=== PATIENT | male | born 1995 | race Caucasian/White ===

== ENCOUNTER → 2019-09-10 14:44 | Outpatient (BNVA) | payer OTHER, SELFPAY | PROVIDERS: PCP Nurse Practitioner Family; Visit Provider Nurse Practitioner Family | DX: M79.672 Pain in left foot (principal) | CPT/HCPCS: 73630 ==

== ENCOUNTER → 2019-10-13 13:02 | Outpatient (BNVA) | payer OTHER, SELFPAY | PROVIDERS: PCP Nurse Practitioner Family; Visit Provider Nurse Practitioner | DX: R05 Cough (principal); J06.9 Acute upper respiratory infection, unspecified | CPT/HCPCS: 87804 ==

== ENCOUNTER → 2020-02-07 15:33 | Outpatient (BNVA) | payer OTHER, SELFPAY | PROVIDERS: PCP Nurse Practitioner Family; Visit Provider Nurse Practitioner | DX: J06.9 Acute upper respiratory infection, unspecified (principal); Z20.828 Contact with and (suspected) exposure to other viral communicable diseases; R50.9 Fever, unspecified; Z11.59 Encounter for screening for other viral diseases; Z68.42 Body mass index [BMI] 45.0-49.9, adult | CPT/HCPCS: 87635 ==

== ENCOUNTER 2021-08-17 10:13 | Emergency (ER) | payer SELFPAY ==
[2021-08-17 10:18] VITALS: BP 148/99; PULSE 137; RESP 35; TEMP 37.1; O2SAT 97; BMI 33.9
--- NOTE | 2021-08-17 10:24 | XRR_ITS ---
PROCEDURE INFORMATION: Exam: XR Chest Exam date and time: 08/17/2021 10:24 AM Age: 26 years old Clinical indication: Other: Abdominal pain TECHNIQUE: Imaging protocol: XR of the chest. Views: 1 view. Total images: 1 COMPARISON: No relevant prior studies available. FINDINGS: Lungs: Unremarkable. No consolidation. Pleural spaces: Unremarkable. No pleural effusion. No pneumothorax. Heart/Mediastinum: Unremarkable. No cardiomegaly. Bones/joints: Unremarkable. XR/XR chest 1V portable [id number] IMPRESSION: No acute cardiopulmonary process.
--- NOTE | 2021-08-17 10:25 | ECG_ITS ---
[facility] Test Date: 2021-08-17 Pat Name: Oneal Gonzalez Department: Room: Gender: Male [employer]: : 1995 Requested By: Robby Palomo Order Number: [id number] Donya MD: Mirtha Martinez M.D. Measurements Intervals [place] Rate: 141 P: 36 [place]: 114 QRS: -25 QRSD: 104 T: 19 QT: 268 QTc: 412 Interpretive Statements SINUS TACHYCARDIA WITH SHORT [place] INTERVAL Artifact Poor anterior R wave progression Compared to ECG 03/16/2016 00:01:05 No significant changes Electronically Signed On 08-17-2021 12:58:32 DATABASE TECHNICIAN by Mirtha Martinez M.D. [email or web address] [email or web address], [place] [id number]
--- NOTE | 2021-08-17 10:26 | W.ED.ABDPA2 ---
Documented by User: TOBI Vazquez 08/17/21 15:32 HPI - Abdominal Pain General: Chief Complaint: Urogenital-Male Stated Complaint: ABD PAIN Time Seen by Provider: 08/17/21 10:20 History of Present Illness: HPI narrative: Patient arrives via ambulance with complaint abdominal pain. Patient complains about severe pain right flank area. Ambulance brought him in given Dilaudid and Zofran. States Tylenol did not really help him. Patient was not tachycardic in the ambulance but does present here with increased heart rate. Patient has some old bruising scattered by his body is not for sure why that is going on. Denies any problems urinating, blood in the urine are bowel problems. No significant medical history. Patient did have dry heaves this morning. MD elicited complaint: flank pain Onset (ago): hour(s) Pain Consistency: constant Location: R flank Severity: moderate Quality: aching and sharp Exacerbating factors: movement Associated Symptoms: Reports no associated symptoms, chills, nausea and vomiting; Denies fever(s) Review of Systems Const: Reports: chills; Denies: fever(s) or body aches Eyes: Denies: change in vision or blurry vision ENMT: Denies: throat pain or nasal congestion Card: Denies: chest pain or dyspnea on exertion Resp: Denies: dyspnea, productive cough or non-productive cough GI: Reports: nausea and vomiting : Reports: flank pain; Denies: difficulty urinating Musc: Denies: extremity pain Skin/Breast: Denies: rash Neuro: Reports: difficulty communicating thoughts; Denies: headache(s) Psych: Denies: anxiety or depression Emil/Lymph: Denies: easy bruising PFSH ED PFSH: Social History Smoking and tobacco status: never smoked Alcohol intake: current Alcohol intake frequency: holidays/special occasions only Physical Exam Const: COMMON NORMALS: no acute distress, average body habitus and patient oriented x3 HENMT: COMMON NORMALS: normocephalic HEAD & SCALP: normal to inspection and normocephalic FACE & SINUS: normal facial exam Eye: COMMON NORMALS: conjunctivae normal GENERAL EYE: appearance normal, both eyes and all related structures CONJUNCTIVA: Yes conjunctivae normal Neck/C-Spine: COMMON NORMALS: no JVD Chest: COMMONS NORMALS: normal inspection of the chest Resp: COMMON NORMALS: normal respiratory effort and clear to auscultation bilaterally AUSCULTATION: clear to auscultation bilaterally Cardio: COMMON NORMALS: no JVD and regular rhythm RATE: tachycardic RHYTHM: regular rhythm GI: COMMON NORMALS: Soft to palpation (Obese) AUSCULTATION: Yes normoactive bowel sounds PALPATION: Yes Soft to palpation (Obese) : BLADDER/KIDNEY EXAM: Yes CVA tenderness on the right Back/Pelvis: GENERAL BACK: Yes CVA tenderness Extremity: COMMON NORMALS: normal to inspection and full ROM Neuro: COMMON NORMALS: patient oriented x3 Skin: OTHER: Scattered old bruises upper left shoulder humerus and right arm. Course Vital Signs: Vital signs: Vital Signs Temperature 98.8 F 08/17/21 10:18 Pulse Rate 89 08/17/21 14:30 Respiratory Rate 22 H 08/17/21 14:30 Blood Pressure 160/106 08/17/21 11:28 Pulse Oximetry 96 08/17/21 14:30 MDM - Abdominal Pain MDM Narrative: Medical decision making narrative: Patient arrived here via ambulance with complaint about right flank pain. Patient was given Dilaudid and Zofran in the ambulance and he got tachycardic low diaphoretic. Patient settled down after while here was given morphine for his discomfort. Laboratory studies were negative for any concerning findings . CT the abdomen shows mild hydronephrosis with a stone that dropped in the bladder pride chest during his time here in the ambulance. Patient's vital signs returned within normal limits. Patient ambulated well to the bathroom answering questions appropriately. Patient has no history of stones. Patient encouraged follow-up primary care provider take medications if needed drink plenty of fluids. Lab Data: Labs: Lab Results 08/17/21 08/17/21 08/17/21 10:35 10:35 10:35 WBC 13.3 10^3/uL H 10 ^3/uL (4.0-10.0) RBC 5.37 10^6/uL H 10 ^6/uL (4.1-5.3) Hgb 15.5 g/dL g/dL (11.7-16.6) Hct 48.8 % % (42.0-52.0) MCV 90.9 fl fl (80-94) MCH 28.9 pg pg (28.0-34.0) MCHC 31.8 g/dL g/dL (30.0-36.0) RDW 13.2 % % (12.1-15.1) Plt Count 279 10^3/cmm 10^3 /cmm (130-400) MPV 10.4 fL fL (7.4-10.4) Neut % (Auto) 83.6 % % Lymph % (Auto) 11.4 % % Holmes % (Auto) 4.0 % % Eos % (Auto) 0.3 % % Baso % (Auto) 0.2 % % Neut # (Auto) 11.14 10^3/uL H 1 0^3/uL (1.8-7.7) Lymph # (Auto) 1.5 10^3/uL 10^3/ uL (0.8-4.8) Holmes # (Auto) 0.5 10^3/uL 10^3/ uL (0.2-0.9) Eos # (Auto) 0.0 10^3/uL 10^3/ uL (0.0-0.8) Baso # (Auto) 0.0 10^3/uL 10^3/ uL (0.0-0.1) Nucleated RBC % (a uto) 0 % % Nucleated RBCs # 0.0 /100WBC /100W BC D-Dimer <= 0.27 ug/mIFEU ug/mIFEU (0-0.59) Sodium 139 mmol/L mmol/L (136-145) Potassium 4.4 mmol/L mmol/L (3.5-5.1) Chloride 102 mmol/L mmol/L (98-107) Carbon Dioxide 22 mmol/L mmol/L (22-29) Anion Gap 19.4 H (5-19) BUN 11 mg/dL mg/dL (6-20) Creatinine 0.7 mg/dL mg/dL (0.7-1.2) GFR Calculation 136.3 mL/min H mL /min (90-130) Glucose 132 mg/dL H mg/dL (65-115) Calculated Osmolal ity 289 mOsm/kg mOsm/ kg (285-295) Calcium 8.8 mg/dL mg/dL (8.5-10.5) Total Bilirubin 0.4 mg/dL mg/dL (0.15-1.2) AST 27 U/L U/L (0-40) ALT 41 U/L U/L (0-41) Alkaline Phosphata se 54 IU/L IU/L (40-130) Total Protein 7.8 g/dL g/dL (6.6-8.7) Albumin 4.9 g/dL g/dL (3.5-5.2) Globulin 2.9 g/dL g/dL (1.3-4.6) Lipase 30 U/L U/L (13-60) Urine Color Urine Appearance Urine pH Ur Specific Gravit y Urine Protein Urine Glucose (UA) Urine Ketones Urine Blood Urine Nitrate Urine Bilirubin Urine Urobilinogen Ur Leukocyte Cass ase Urine RBC Urine WBC Ur Squamous Epith Cells Amorphous Sediment Urine Bacteria Urine Mucus Coronavirus 229E ( PCR) SARS-CoV-2 (PCR) 08/17/21 08/17/21 11:15 13:20 WBC RBC Hgb Hct MCV MCH MCHC RDW Plt Count MPV Neut % (Auto) Lymph % (Auto) Holmes % (Auto) Eos % (Auto) Baso % (Auto) Neut # (Auto) Lymph # (Auto) Holmes # (Auto) Eos # (Auto) Baso # (Auto) Nucleated RBC % (a uto) Nucleated RBCs # D-Dimer Sodium Potassium Chloride Carbon Dioxide Anion Gap BUN Creatinine GFR Calculation Glucose Calculated Osmolal ity Calcium Total Bilirubin AST ALT Alkaline Phosphata se Total Protein Albumin Globulin Lipase Urine Color Yellow (Yellow) Urine Appearance Cloudy (CLEAR) Urine pH 5 (5-7) Ur Specific Gravit y 1.025 (1.005-1.030) Urine Protein Neg (Negative) Urine Glucose (UA) Norm (Normal) Urine Ketones Negative (Negative) Urine Blood 2+ H (Negative) Urine Nitrate Negative (Negative) Urine Bilirubin Neg (Negative) Urine Urobilinogen Norm mg/dL mg/dL (Negative) Ur Leukocyte Cass ase Negative (Negative) Urine RBC Rare /hpf /hpf (0-2) Urine WBC 0-4 /hpf H /hpf (0-5) Ur Squamous Epith Cells Rare /hpf /hpf (0-5) Amorphous Sediment Not Reportable Urine Bacteria Trace /hpf /hpf (NONE) Urine Mucus Trace /hpf /hpf Coronavirus 229E ( PCR) Not detected (NOT DETECT) SARS-CoV-2 (PCR) Not detected (NOT DETECT) Discharge Plan Discharge Patient Disposition: Home Clinical Impression: Kidney stone Condition: Stable Prescriptions: New tramadol 50 mg tablet 50 mg PO TID PRN (Reason: pain) Qty: 7 RF: 0 No Action ibuprofen 200 mg capsule 800 mg PO Q6H PRNRF: 0 Discharge Orders: Discharge ED (Routine); Ordered 08/17/21 Ordered By: Robby Palomo Referrals: Patricia Nicolas NP [Primary Care Provider] - Discharge Diet: Usual diet Discharge Activity: Resume usual activity Patient Instructions: Kidney Stones (ED) Activity Restrictions/Additional Instructions: You did have a kidney stone. The kidney stone is traveled down into your bladder and you should be able to pass it without difficulty. Follow-up your primary care provider or return here if you have worsening symptoms. Make sure you drink plenty of fluid. Coding Level of Care Code ED Housekeeping Assistant for Chg Fwd Exam Comprehensive Documented by User: Gino Sotomayor MD 08/19/21 22:46 HPI - Abdominal Pain General: Chief Complaint: Urogenital-Male Stated Complaint: ABD PAIN Time Seen by Provider: 08/17/21 10:20 [facility] ED PFSH: Social History Smoking and tobacco status: never smoked Alcohol intake: current Alcohol intake frequency: holidays/special occasions only Course Vital Signs: Vital signs: Vital Signs Temperature 98.8 F 08/17/21 10:18 Pulse Rate 89 08/17/21 14:30 Respiratory Rate 22 H 08/17/21 14:30 Blood Pressure 160/106 08/17/21 11:28 Pulse Oximetry 96 08/17/21 14:30 MDM - Abdominal Pain Lab Data: Labs: Lab Results 08/17/21 08/17/21 08/17/21 10:35 10:35 10:35 WBC 13.3 10^3/uL H 10 ^3/uL (4.0-10.0) RBC 5.37 10^6/uL H 10 ^6/uL (4.1-5.3) Hgb 15.5 g/dL g/dL (11.7-16.6) Hct 48.8 % % (42.0-52.0) MCV 90.9 fl fl (80-94) MCH 28.9 pg pg (28.0-34.0) MCHC 31.8 g/dL g/dL (30.0-36.0) RDW 13.2 % % (12.1-15.1) Plt Count 279 10^3/cmm 10^3 /cmm (130-400) MPV 10.4 fL fL (7.4-10.4) Neut % (Auto) 83.6 % % Lymph % (Auto) 11.4 % % Holmes % (Auto) 4.0 % % Eos % (Auto) 0.3 % % Baso % (Auto) 0.2 % % Neut # (Auto) 11.14 10^3/uL H 1 0^3/uL (1.8-7.7) Lymph # (Auto) 1.5 10^3/uL 10^3/ uL (0.8-4.8) Holmes # (Auto) 0.5 10^3/uL 10^3/ uL (0.2-0.9) Eos # (Auto) 0.0 10^3/uL 10^3/ uL (0.0-0.8) Baso # (Auto) 0.0 10^3/uL 10^3/ uL (0.0-0.1) Nucleated RBC % (a uto) 0 % % Nucleated RBCs # 0.0 /100WBC /100W BC D-Dimer <= 0.27 ug/mIFEU ug/mIFEU (0-0.59) Sodium 139 mmol/L mmol/L (136-145) Potassium 4.4 mmol/L mmol/L (3.5-5.1) Chloride 102 mmol/L mmol/L (98-107) Carbon Dioxide 22 mmol/L mmol/L (22-29) Anion Gap 19.4 H (5-19) BUN 11 mg/dL mg/dL (6-20) Creatinine 0.7 mg/dL mg/dL (0.7-1.2) GFR Calculation 136.3 mL/min H mL /min (90-130) Glucose 132 mg/dL H mg/dL (65-115) Calculated Osmolal ity 289 mOsm/kg mOsm/ kg (285-295) Calcium 8.8 mg/dL mg/dL (8.5-10.5) Total Bilirubin 0.4 mg/dL mg/dL (0.15-1.2) AST 27 U/L U/L (0-40) ALT 41 U/L U/L (0-41) Alkaline Phosphata se 54 IU/L IU/L (40-130) Total Protein 7.8 g/dL g/dL (6.6-8.7) Albumin 4.9 g/dL g/dL (3.5-5.2) Globulin 2.9 g/dL g/dL (1.3-4.6) Lipase 30 U/L U/L (13-60) Urine Color Urine Appearance Urine pH Ur Specific Gravit y Urine Protein Urine Glucose (UA) Urine Ketones Urine Blood Urine Nitrate Urine Bilirubin Urine Urobilinogen Ur Leukocyte Cass ase Urine RBC Urine WBC Ur Squamous Epith Cells Amorphous Sediment Urine Bacteria Urine Mucus Coronavirus 229E ( PCR) SARS-CoV-2 (PCR) 08/17/21 08/17/21 11:15 13:20 WBC RBC Hgb Hct MCV MCH MCHC RDW Plt Count MPV Neut % (Auto) Lymph % (Auto) Holmes % (Auto) Eos % (Auto) Baso % (Auto) Neut # (Auto) Lymph # (Auto) Holmes # (Auto) Eos # (Auto) Baso # (Auto) Nucleated RBC % (a uto) Nucleated RBCs # D-Dimer Sodium Potassium Chloride Carbon Dioxide Anion Gap BUN Creatinine GFR Calculation Glucose Calculated Osmolal ity Calcium Total Bilirubin AST ALT Alkaline Phosphata se Total Protein Albumin Globulin Lipase Urine Color Yellow (Yellow) Urine Appearance Cloudy (CLEAR) Urine pH 5 (5-7) Ur Specific Gravit y 1.025 (1.005-1.030) Urine Protein Neg (Negative) Urine Glucose (UA) Norm (Normal) Urine Ketones Negative (Negative) Urine Blood 2+ H (Negative) Urine Nitrate Negative (Negative) Urine Bilirubin Neg (Negative) Urine Urobilinogen Norm mg/dL mg/dL (Negative) Ur Leukocyte Cass ase Negative (Negative) Urine RBC Rare /hpf /hpf (0-2) Urine WBC 0-4 /hpf H /hpf (0-5) Ur Squamous Epith Cells Rare /hpf /hpf (0-5) Amorphous Sediment Not Reportable Urine Bacteria Trace /hpf /hpf (NONE) Urine Mucus Trace /hpf /hpf Coronavirus 229E ( PCR) Not detected (NOT DETECT) SARS-CoV-2 (PCR) Not detected (NOT DETECT) Discharge Plan Discharge Patient Disposition: Home Clinical Impression: Kidney stone Condition: Stable Prescriptions: New tramadol 50 mg tablet 50 mg PO TID PRN (Reason: pain) Qty: 7 RF: 0 No Action ibuprofen 200 mg capsule 800 mg PO Q6H PRNRF: 0 Discharge Orders: Discharge ED (Routine); Ordered 08/17/21 Ordered By: Robby Palomo Referrals: Patricia Nicolas NP [Primary Care Provider] - Discharge Diet: Usual diet Discharge Activity: Resume usual activity Patient Instructions: Kidney Stones (ED) Activity Restrictions/Additional Instructions: You did have a kidney stone. The kidney stone is traveled down into your bladder and you should be able to pass it without difficulty. Follow-up your primary care provider or return here if you have worsening symptoms. Make sure you drink plenty of fluid. Coding Level of Care Code ED Housekeeping Assistant for Chg Fwd Exam Comprehensive
--- NOTE | 2021-08-17 10:30 | CT_ITS ---
WS: [id number] CT ABDOMEN AND PELVIS NONCONTRAST HISTORY: right flank pain TECHNIQUE: Imaging performed through the abdomen and pelvis. Coronal and sagittal reformats are submi tted. All CT scans at [facility] use at least one of these dose optimization techniques: auto mated exposure control; mA and/or kV adjustment per patient size (includes targeted exams where dose is matched to clinical indication); or iterative reconstruction. DLP: 2478.89 mGy.cm COMPARISON: None available. Lower thorax: Lung bases are clear. Visualized heart is normal. No hiatal hernia. Liver: Moderately enlarged liver with decreased attenuation throughout. Changes of at least moderate hepatic steatosis. No bile duct dilatation. Gallbladder: Normal gallbladder. Pancreas: Normal size and attenuation. Normal pancreatic duct. No pancreatitis or mass. Spleen: Normal. Adrenal glands: Normal. No mass. Right kidney: Normal size RIGHT kidney. There is very mild dilatation of the renal pelvis and RIGHT u reter. 2 mm area of very slight increased density within the RIGHT ureter at the level of L5. The ure ter distal to this possible calcification is dilated to the urinary bladder. No renal calcifications remain within the kidney. Left kidney: Normal size kidney with no mass or hydronephrosis. Aorta: Normal abdominal aorta, no aneurysm or atherosclerosis. No free fluid, intraperitoneal air or significant lymphadenopathy. GI tract: Normal appendix. No GI tract obstruction or diverticulosis. Abdominal wall: Negative. No hernia. Pelvis: Well-distended urinary bladder. There is a 2 mm area of increased density within the RIGHT la teral urinary bladder which I suspect is a recently passed stone that was causing the mild RIGHT uret eral obstruction. This calcification is best seen on image 167 of series 2. Osseous structures: Unremarkable. CT/CT kidney stone [id number] IMPRESSION: 1. Very mild RIGHT hydroureteronephrosis. There is a 2 mm calcification in the RIGHT urinary bladder. This is probably the recently passed calcification caus ing the obstruction. There is an additional very tiny 2 mm area of increased de nsity in the mid RIGHT ureter at the L5 level which could be an additional smal l ureteral stone. 2. Normal appendix. 3. No additional renal calcifications.
[2021-08-17 10:48] LABS: Basophils % 0.2 %; Eosinophils % 0.3 %; Hematocrit 48.8 % (42.0-52.0); Hemoglobin 15.5 g/dL (11.7-16.6); Lymphocytes # 1.5 10^3/uL (0.8-4.8); Lymphocytes % 11.4 %; Mean Corpuscular HGB Conc 31.8 g/dL (30.0-36.0); Mean Corpuscular Hemoglobin 28.9 pg (28.0-34.0); Mean Corpuscular Volume 90.9 fl (80-94); Mean Platelet Volume 10.4 fL (7.4-10.4); Monocytes # 0.5 10^3/uL (0.2-0.9); Neutrophils # 11.14 10^3/uL (1.8-7.7); Neutrophils % 83.6 %; Nucleated Red Blood Cells % 0 %; Platelet Count 279 10^3/cmm (130-400); Red Blood Count 5.37 10^6/uL (4.1-5.3); Red Cell Distribution Width 13.2 % (12.1-15.1); White Blood Count 13.3 10^3/uL (4.0-10.0)
[2021-08-17 11:04] LABS: D Dimer <= 0.27 ug/mIFEU (0-0.59)
[2021-08-17 11:09] LABS: Alanine Aminotransferase 41 U/L (0-41); Albumin Level 4.9 g/dL (3.5-5.2); Alkaline Phosphatase 54 IU/L (40-130); Aspartate Amino Transferase 27 U/L (0-40); Blood Urea Nitrogen 11 mg/dL (6-20); Calcium 8.8 mg/dL (8.5-10.5); Carbon Dioxide 22 mmol/L (22-29); Chloride 102 mmol/L (98-107); Globulin 2.9 g/dL (1.3-4.6); Glomerular Filtration Rate 136.3 mL/min (90-130); Glucose 132 mg/dL (65-115); Lipase 30 U/L (13-60); Osmolality Calculated 289 mOsm/kg (285-295); Sodium 139 mmol/L (136-145); Total Bilirubin 0.4 mg/dL (0.15-1.2); Total Protein 7.8 g/dL (6.6-8.7)
[2021-08-17 11:11] LABS: Anion Gap 19.4 (5-19); Potassium 4.4 mmol/L (3.5-5.1)
[2021-08-17 11:12] VITALS: RESP 15; O2SAT 96
[2021-08-17] MEDS: morphine 4 mg/mL SDV 1 mL IVP (11:12)
[2021-08-17] MEDS: sodium chloride 0.9% 1,000 ML 999 ML IV (11:15)
[2021-08-17 11:28] VITALS: BP 160/106; PULSE 105; RESP 24; O2SAT 94
[2021-08-17 13:14] LABS: Adenovirus Not Detected (NOT DETECT); Chlamydia Pneumoniae Not Detected (NOT DETECT); Coronavirus 229E,HKU1,NL63,OC4 Not Detected (NOT DETECT); Human Metapneumovirus Not Detected (NOT DETECT); Human Rhinovirus/Enterovirus Not Detected (NOT DETECT); Influenza A Not Detected (NOT DETECT); Influenza A H1 Not Detected (NOT DETECT); Influenza A H1-2009 Not Detected (NOT DETECT); Influenza A H3 Not Detected (NOT DETECT); Influenza B Not Detected (NOT DETECT); Mycoplasma Pneumoniae Not Detected (NOT DETECT); Parainfluenza Virus Type 1 Not Detected (NOT DETECT); Parainfluenza Virus Type 2 Not Detected (NOT DETECT); Parainfluenza Virus Type 3 Not Detected (NOT DETECT); Parainfluenza Virus Type 4 Not Detected (NOT DETECT); Respiratory Syncytial Virus A Not Detected (NOT DETECT); Respiratory Syncytial Virus B Not Detected (NOT DETECT); SARS-COV-2 Not Detected (NOT DETECT)
[2021-08-17 14:01] LABS: Add Urine Microscopic? YES; Bacteria Urine TRACE /hpf; Bilirubin Urine Neg (Negative); Blood Urine 2+ (Negative); Glucose Urine UA Norm (Normal); Ketones Urine Negative (Negative); Leukocyte Esterase Urine Negative (Negative); Nitrate Urine Negative (Negative); Protein Urine Neg (Negative); RBC Urine RARE /hpf (0-2); Specific Gravity, Urine 1.025 (1.005-1.030); Squamous Epithelial Cell Urine RARE /hpf (0-5); Urine Appearance Cloudy (CLEAR); Urine Color Yellow (Yellow); Urobilinogen Urine Norm (Negative); WBC Urine 0-4 /hpf (0-5); pH Urine 5 (5-7)
[2021-08-17 14:02] LABS: Mucus Urine TRACE /hpf
[2021-08-17 14:30] VITALS: PULSE 89; RESP 22; O2SAT 96
== END 2021-08-17 14:40 | disposition home or self-care (01) ==
PROVIDERS: Emergency Provider Nurse Practitioner Family; PCP Nurse Practitioner Family
DX: N20.0 Calculus of kidney (principal); Z20.822 Contact with and (suspected) exposure to COVID-19
CPT/HCPCS: 71045; 74176; 80053; 81001; 83690; 85025; 85378; 87635; 93005; 96361; 96374; 99283; J2270; J7030

== ENCOUNTER 2023-09-23 16:35 | Emergency (ER) | payer MEDICAID, SELFPAY ==
[2023-09-23] VITALS (7 sets, daily range): BP systolic 145–159; BP diastolic 72–86; PULSE 103–117; RESP 18–25; TEMP 36.9; O2SAT 93–99; BMI 47.0
--- NOTE | 2023-09-23 17:14 | XRR_ITS ---
PROCEDURE INFORMATION: Exam: XR Chest Exam date and time: 09/23/2023 5:28 PM Age: 28 years old Clinical indication: Shortness of breath; Patient HX: SOB; Wheezing; Dry cough x 1 week TECHNIQUE: Imaging protocol: Radiologic exam of the chest. Views: 1 view. COMPARISON: CR XR chest 1V portable [id number] 08/17/2021 10:41 AM FINDINGS: Lungs: No consolidation. Pleural spaces: No pleural effusion. No pneumothorax. Heart/Mediastinum: No cardiomegaly. Bones/joints: No acute findings. XR/XR chest 1V portable [id number] IMPRESSION: No acute findings.
--- NOTE | 2023-09-23 17:14 | ED_ITS ---
Documented by User: MILLIE Lara 09/23/23 22:05 HPI - SOB/Dyspnea 2 General: Chief Complaint: Shortness of Breath/Dyspnea Stated Complaint: sob Time Seen by Provider: 09/23/23 17:10 Source: patient Mode of arrival: ambulatory Limitations: no limitations History of Present Illness: HPI Narrative: Patient is a 28-year-old male presents to ED today with a complaint of dyspnea/cough/chest wall pain. Patient states he began having URI-like symptoms approximately 3 days ago. He states at home he has treated with albuterol inhaler, one DuoNeb nebulizer treatment, and some leftover antibiotics (Amoxicillin) and steroids (20mg BID) and they do not seem to be helping. He states today dyspnea got significantly worse thus prompting his emergency evaluation. He states he feels like he cannot take a deep breath. He states he has been coughing so much that he is now having chest wall/rib pain. Patient arrives to the ED tachycardic. During my initial examination heart rate is in the 120s (although states normal HR for him is 100-110s) with respirations in the upper 20s. He appears anxious and pacing at times. Patient denies underlying lung disease. Denies sick contacts. No fevers. MD elicited complaint: shortness of breath, cough and pain with inspiration Onset (ago): day(s) Timing: constant Severity: moderate Exacerbating factors: exertion Relieving factors: nothing Associated symptoms: Reports chest congestion, chest pain (chest wall pain with coughing), cough and orthopnea; Deny abdominal pain, dizziness, fever(s), hemoptysis, lightheadedness, palpitations, syncope or vomiting Related Data: Home oxygen amount: none Review of Systems 2 Const: Denies: fever(s), chills, body aches, fatigue or malaise ENMT: Reports: nasal discharge and nasal congestion Card: Reports: chest pain (chest wall pain with coughing), dyspnea on exertion and orthopnea; Denies: palpitations, irregular heart rhythm, edema, swelling of feet/ankles, lightheadedness, syncope, pre-syncope, leg pain with exertion or acrocyanosis Resp: Reports: dyspnea, productive cough, pain on inspiration and chest congestion; Denies: wheezing, stridor or hemoptysis GI: Denies: abdominal pain or vomiting Musc: Denies: back pain or extremity swelling Neuro: Denies: numbness in extremities, sensory changes or dizziness PFSH ED 2 PFSH: Social History Smoking and tobacco/nicotine status: never used tobacco/nicotine Alcohol intake: current Alcohol intake frequency: holidays/special occasions only Substance/Drug Use: never Adopted: No Lives independently: Yes Household members: family Housing: House Marital status: / Number of children: 2 service: No Current occupational status: employed Pets and animals: Yes Do you think of yourself as: Straight/Heterosexual Current gender identity: Male Physical Exam 2 Const: COMMON NORMALS: patient oriented x3, no limitations, alert and well nourished GENERAL APPEARANCE: cooperative, in distress (respiratory distress with tachycardia and tachypnea) and anxious NUTRITIONAL APPEARANCE: obese ORIENTATION/CONSCIOUSNESS: Yes awake, Yes oriented to person, Yes oriented to place and Yes oriented to time HENMT: FACE & SINUS: normal facial exam Neck/C-Spine: GENERAL: Yes normal visual inspection Chest: COMMONS NORMALS: normal inspection of the chest and normal palpation of entire chest wall Resp: COMMON NORMALS: clear to auscultation bilaterally EFFORT & INSPECTION: Yes tachypneic and Yes Actively coughing AUSCULTATION: clear to auscultation bilaterally Cardio: COMMON NORMALS: regular rhythm RATE: tachycardic RHYTHM: regular rhythm Extremity: COMMON NORMALS: no clubbing, cyanosis or edema and no pedal edema Neuro: CEDRIC COMA SCALE: document GCS findings Cedric coma scale eye opening: Spontaneous [place] coma scale verbal response: Orientated [place] coma scale motor response: Obey commands [place] coma scale total score: 15 COMMON NORMALS: patient oriented x3 SENSORIUM/ORIENTATION: Yes alert, Yes oriented to person, Yes oriented to place and Yes oriented to time Skin: COMMON NORMALS: no rashes or lesions noted GENERAL SKIN EXAM: no rashes or lesions noted Course 2 Vital Signs: Vital signs: Vital Signs Temperature 98.4 F 09/23/23 19:58 Pulse Rate 103 H 09/23/23 19:58 Respiratory Rate 25 H 09/23/23 19:58 Blood Pressure 159/86 09/23/23 19:58 Pulse Oximetry 94 09/23/23 19:58 Oxygen Delivery Me thod Room Air 09/23/23 18:14 MDM - SOB/Dyspnea Medical Decision Making Patient is a nice 28-year-old male here for concerns of dyspnea, cough, and chest wall pain secondary to coughing. Symptoms have been present over the past 3 to 4 days. Upon arrival he was tachycardic and tachypneic-these did improve. O2 sats were 99% on room air. He was anxious appearing. ED evaluation including CBC, CMP, D-dimer, BNP, ABG all are fairly unremarkable. Elevated glucose which he was made aware of. CXR showing no acute findings. His respiratory panel was positive for RSV type B. Patient was given IV Solu- Medrol, DuoNeb respiratory treatment, and anti-inflammatory/pain medications for his chest wall pain which seems to be his most bothersome symptom. We will place him on steroids at home. Will treat chest wall pain with pain medications and give him something for the cough. Return to ED precautions discussed. Following discharge patient called to the emergency department and I spoke to him directly. He questions whether he can compensate for the chest wall pain that he is experiencing. He is asking if I believe a hospital admission would be warranted or beneficial. I told him I would be more than willing to contact the hospitalist Dr. Nguyen and run his case by him and call patient back. I did speak to hospitalist who felt there was no need for a hospitalization for chest wall pain/strain vs pleurisy. He said he would be willing to admit the patient to obs but that patient would most likely be discharged in the morning and he did not feel benefits would outweigh financial cost and did not feel like stay would overall benefit patient as he would be unlikely significantly improved tomorrow. He did recommend stronger pain medications/opiates for treatment. I spoke with Dr. Orellana and we will have patient come back to the emergency department and he will be dispensed oxycodone to last him throughout the night and will be given a prescription for this that he can fill tomorrow. Patient was agreeable to this plan. Again return to ED precautions were discussed with patient. Medical Records I reviewed the patient's medical records. Lab Data I reviewed the patient's lab results. 09/23/23 17:25 09/23/23 17:25 Labs/Radiology: Radiology Impressions Chest X-Ray 09/23/23 17:14 IMPRESSION: No acute findings. Laboratory Results WBC 15.62 10^3/uL (3.29-11.43) H 09/23/23 17:25 RBC 4.65 10^6/uL (3.85-5.65) 09/23/23 17:25 Hgb 13.40 g/dL (11.27-16.99) 09/23/23 17:25 Hct 42.0 % (37-53) 09/23/23 17:25 MCV 90.3 fl (82-101) 09/23/23 17:25 MCH 28.8 pg (27-33) 09/23/23 17:25 MCHC 31.9 g/dL (30-55) 09/23/23 17:25 RDW 14.0 % (12.1-15.1) 09/23/23 17: Plt Count 253 10^3/cmm (157-399) 09/23/23 17:25 MPV 10.6 fL (7.4-10.4) H 09/23/23 17:25 Neut % (Auto) 79.3 % 09/23/23 17:25 Lymph % (Auto) 10.3 % 09/23/23 17:25 Elmore % (Auto) 9.3 % 09/23/23 17:25 Eos % (Auto) 0.4 % 09/23/23 17:25 Baso % (Auto) 0.3 % 09/23/23 17: Neut # (Auto) 12.37 10^3/uL (1.8-7.7) H 09/23/23 17:25 Lymph # (Auto) 1.6 10^3/uL (0.8-4.8) 09/23/23 17:25 Elmore # (Auto) 1.5 10^3/uL (0.2-0.9) H 09/23/23 17:25 Eos # (Auto) 0.1 10^3/uL (0.0-0.8) 09/23/23 17:25 Baso # (Auto) 0.0 10^3/uL (0.0-0.1) 09/23/23 17:25 Nucleated RBC % (auto) 0 % 09/23/23: Nucleated RBCs # 0.0 /100WBC 09/23/23 17:25 D-Dimer 0.28 ug/mLFEU (0-0.59) 09/23/23 17:25 Specimen Type Arterial 09/23/23 17:55 Sample Site Radial, left 09/23/23 17:55 ABG pH 7.42 (7.35-7.45) 09/23/23 17:55 ABG pCO2 40.9 mmHg (35-45) 09/23/23 17:55 ABG pO2 69.2 mmHg (80.0-100.0) L 09/23/23 17:55 ABG PO2/FiO2 Ratio 0 09/23/23 17:55 ABG HCO3 26.6 mmol/L (22-26) H 09/23/23 17:55 ABG O2 Saturation 94.4 09/23/23 17:55 ABG Base Excess 2.0 mmol/L (-2.0-2.0) 09/23/23 17:55 Farrukh Test Pos 09/23/23 17:55 A-a O2 Gradient 3.9 mmHg (5-10) L 09/23/23 17:55 Hematocrit 43.7 % (42-52) 09/23/23 17:55 Hgb O2 Saturation 93.3 % (95-100) L 09/23/23 17:55 Carboxyhemoglobin 0.5 %THgb (0.4-20.1) 09/23/23 17:55 Methemoglobin 0.6 % (0.4-1.5) 09/23/23 17:55 Total Hemoglobin 14.3 g/dL (14-18) 09/23/23 17:55 Sodium 142.0 mmol/L (131-143) 09/23/23 17:55 Potassium 3.6 mmol/L (3.5-5.0) 09/23/23 17:55 Glucose 139.0 mg/dL (70-115) H 09/23/23 17:55 Ionized Calcium 1.3 mmol/L (1.1-1.4) 09/23/23 17:55 O2 Delivery Device Room air 09/23/23 17:55 FiO2 21.0 % 09/23/23 17:55 Notched Blade Loader ID Monro 09/23/23 17:55 Sodium 138 mmol/L (136-145) 09/23/23 17:25 Potassium 3.7 mmol/L (3.5-5.1) 09/23/23 17:25 Chloride 102 mmol/L (98-107) 09/23/23 17:25 Carbon Dioxide 26 mmol/L (22-29) 09/23/23 17:25 Anion Gap 13.7 (5-19) 09/23/23 17:25 BUN 13 mg/dL (6-20) 09/23/23 17:25 Creatinine 0.7 mg/dL (0.7-1.2) 09/23/23 17:25 GFR Calculation 134.3 mL/min (90-130) H 09/23/23 17:25 Glucose 174 mg/dL (65-115) H 09/23/23 17:25 Calculated Osmolality 290 mOsm/kg (285-295) 09/23/23 17:25 Calcium 9.4 mg/dL (8.5-10.5) 09/23/23 17:25 Total Bilirubin 0.2 mg/dL (0.15-1.2) 09/23/23 17:25 AST 31 U/L (0-40) 09/23/23 17:25 ALT 41 U/L (0-41) 09/23/23 17:25 Alkaline Phosphatase 67 U/L (40-130) 09/23/23 17:25 NT-Pro-B Natriuret Pep 43 pg/mL (0-125) 09/23/23 17:25 Total Protein 7.6 g/dL (6.6-8.7) 09/23/23 17:25 Albumin 4.2 g/dL (3.5-5.2) 09/23/23 17:25 Globulin 3.4 g/dL (1.3-4.6) 09/23/23 17:25 Adenovirus (PCR) Not detected (NOT DETECT) 09/23/23 17:19 C. pneumoniae DNA (PCR) Not detected (NOT DETECT) 09/23/23 17:19 Coronavirus 229E (PCR) Not detected (NOT DETECT) 09/23/23 17:19 Human Metapneumovir PCR Not detected (NOT DETECT) 09/23/23 17:19 Influenza A (H1) PCR Not detected (NOT DETECT) 09/23/23 17:19 Influ A (H1/09) PCR Not detected (NOT DETECT) 09/23/23 17:19 Influenza A (H3) PCR Not detected (NOT DETECT) 09/23/23 17:19 Influenza Type A (PCR) Not detected (NOT DETECT) 09/23/23 17:19 Influenza Type B (PCR) Not detected (NOT DETECT) 09/23/23 17:19 M. pneumoniae (PCR) Not detected (NOT DETECT) 09/23/23 17:19 Parainfluenza 1 (PCR) Not detected (NOT DETECT) 09/23/23 17:19 Parainfluenza 2 (PCR) Not detected (NOT DETECT) 09/23/23 17:19 Parainfluenza 3 (PCR) Not detected (NOT DETECT) 09/23/23 17:19 Parainfluenza 4 (PCR) Not detected (NOT DETECT) 09/23/23 17:19 RSV Type A (PCR) Not detected (NOT DETECT) 09/23/23 17:19 RSV Type B (PCR) Detected (NOT DETECT) A 09/23/23 17:19 Entero/Rhino (PCR) Not detected (NOT DETECT) 09/23/23 17:19 SARS-CoV-2 (PCR) Not detected (NOT DETECT) 09/23/23 17:19 All radiology interpretation(s) finalized by discharge Discharge Plan Discharge Patient Disposition: Home Clinical Impression: RSV (respiratory syncytial virus infection) Chest wall muscle strain Qualifiers: Encounter type: initial encounter Qualified Code(s): S29.011A - Strain of muscle and tendon of front wall of thorax, initial encounter Condition: Stable Prescriptions: New promethazine-DM 6.25-15 mg/5 mL syrup 5 ml PO Q6H PRN (Reason: cough) Qty: 100 0RF prednisone 10 mg tablet 10 mg PO DAILY 10 Days Qty: 27 0RF Rx Instructions: 6 tabs on days 1-2, 5 tabs on days 3, 4 tabs on day 4, 3 tabs on day 5, 2 tabs on day 6, 1 tab on day 7 Percocet 7.5-325 mg tablet 1 tab PO Q6H PRN (Reason: pain) Qty: 10 0RF No Action ibuprofen 200 mg capsule 800 mg PO Q6H PRN sertraline 50 mg tablet 50 mg PO DAILY Qty: 30 5RF buspirone 10 mg tablet 10 mg PO BID Qty: 60 2RF Discharge Orders: Discharge ED (Routine); Ordered 09/23/23 Ordered By: Josefa Tee Patient Instructions: Chest Pain - Chest Wall, Upper Respiratory Infection (DC) Activity Restrictions/Additional Instructions: As we discussed you tested positive for RSV on your respiratory panel today. I am placing you on steroids, giving you something for your cough as well as your chest wall pain. As we discussed your blood work here was fairly unremarkable. There chest x-ray was normal. Monitor symptoms closely. You need to return to the emergency department for worsening cough or shortness of breath, severe difficulty breathing, worsening chest pain, fevers, or any other concerns you may have. I hope you begin to feel better soon. Coding Level of Care Code ED Desktop Publishing Associate for Chg Fwd Documented by User: Eddie Orellana DO 09/24/23 02:23 HPI - SOB/Dyspnea 2 General: Chief Complaint: Shortness of Breath/Dyspnea Stated Complaint: sob Time Seen by Provider: 09/23/23 17:10 PFSH ED 2 PFSH: Social History Smoking and tobacco/nicotine status: never used tobacco/nicotine Alcohol intake: current Alcohol intake frequency: holidays/special occasions only Substance/Drug Use: never Adopted: No Lives independently: Yes Household members: family Housing: House Marital status: / Number of children: 2 service: No Current occupational status: employed Pets and animals: Yes Do you think of yourself as: Straight/Heterosexual Current gender identity: Male Physical Exam 2 Neuro: CEDRIC COMA SCALE: document GCS findings Cedric coma scale total score: 15 Course 2 Vital Signs: Vital signs: Vital Signs Temperature 98.4 F 09/23/23 19:58 Pulse Rate 103 H 09/23/23 19:58 Respiratory Rate 25 H 09/23/23 19:58 Blood Pressure 159/86 09/23/23 19:58 Pulse Oximetry 94 09/23/23 19:58 Oxygen Delivery Me thod Room Air 09/23/23 18:14 MDM - SOB/Dyspnea Medical Decision Making Patient is a nice 28-year-old male here for concerns of dyspnea, cough, and chest wall pain secondary to coughing. Symptoms have been present over the past 3 to 4 days. Upon arrival he was tachycardic and tachypneic-these did improve. O2 sats were 99% on room air. He was anxious appearing. ED evaluation including CBC, CMP, D-dimer, BNP, ABG all are fairly unremarkable. Elevated glucose which he was made aware of. CXR showing no acute findings. His respiratory panel was positive for RSV type B. Patient was given IV Solu- Medrol, DuoNeb respiratory treatment, and anti-inflammatory/pain medications for his chest wall pain which seems to be his most bothersome symptom. We will place him on steroids at home. Will treat chest wall pain with pain medications and give him something for the cough. Return to ED precautions discussed. Following discharge patient called to the emergency department and I spoke to him directly. He questions whether he can compensate for the chest wall pain that he is experiencing. He is asking if I believe a hospital admission would be warranted or beneficial. I told him I would be more than willing to contact the hospitalist Dr. Nguyen and run his case by him and call patient back. I did speak to hospitalist who felt there was no need for a hospitalization for chest wall pain/strain vs pleurisy. He said he would be willing to admit the patient to obs but that patient would most likely be discharged in the morning and he did not feel benefits would outweigh financial cost and did not feel like stay would overall benefit patient as he would be unlikely significantly improved tomorrow. He did recommend stronger pain medications/opiates for treatment. I spoke with Dr. Orellana and we will have patient come back to the emergency department and he will be dispensed oxycodone to last him throughout the night and will be given a prescription for this that he can fill tomorrow. Patient was agreeable to this plan. Again return to ED precautions were discussed with patient. This patient was originally seen by Mrs. Tee?GERTRUDE Crocker.? I agree with her history, evaluation, and treatment. Lab Data 09/23/23 17:25 09/23/23 17:25 Labs/Radiology: Radiology Impressions Chest X-Ray 09/23/23 17:14 IMPRESSION: No acute findings. Laboratory Results WBC 15.62 10^3/uL (3.29-11.43) H 09/23/23 17:25 RBC 4.65 10^6/uL (3.85-5.65) 09/23/23 17:25 Hgb 13.40 g/dL (11.27-16.99) 09/23/23 17:25 Hct 42.0 % (37-53) 09/23/23 17:25 MCV 90.3 fl (82-101) 09/23/23 17:25 MCH 28.8 pg (27-33) 09/23/23 17:25 MCHC 31.9 g/dL (30-55) 09/23/23 17: RDW 14.0 % (12.1-15.1) 09/23/23 17: Plt Count 253 10^3/cmm (157-399) 09/23/23 17:25 MPV 10.6 fL (7.4-10.4) H 09/23/23 17:25 Neut % (Auto) 79.3 % 09/23/23 17:25 Lymph % (Auto) 10.3 % 09/23/23 17:25 Elmore % (Auto) 9.3 % 09/23/23 17:25 Eos % (Auto) 0.4 % 09/23/23 17:25 Baso % (Auto) 0.3 % 09/23/23:25 Neut # (Auto) 12.37 10^3/uL (1.8-7.7) H 09/23/23 17:25 Lymph # (Auto) 1.6 10^3/uL (0.8-4.8) 09/23/23 17:25 [place] # (Auto) 1.5 10^3/uL (0.2-0.9) H 09/23/23 17:25 Eos # (Auto) 0.1 10^3/uL (0.0-0.8) 09/23/23 17:25 Baso # (Auto) 0.0 10^3/uL (0.0-0.1) 09/23/23 17:25 Nucleated RBC % (auto) 0 % 09/23/23 17: Nucleated RBCs # 0.0 /100WBC 09/23/23 17:25 D-Dimer 0.28 ug/mLFEU (0-0.59) 09/23/23 17:25 Specimen Type Arterial 09/23/23 17:55 Sample Site Radial, left 09/23/23 17:55 ABG pH 7.42 (7.35-7.45) 09/23/23 17:55 ABG pCO2 40.9 mmHg (35-45) 09/23/23 17:55 ABG pO2 69.2 mmHg (80.0-100.0) L 09/23/23 17:55 ABG PO2/FiO2 Ratio 0 09/23/23 17:55 ABG HCO3 26.6 mmol/L (22-26) H 09/23/23 17:55 ABG O2 Saturation 94.4 09/23/23 17:55 ABG Base Excess 2.0 mmol/L (-2.0-2.0) 09/23/23 17:55 Farrukh Test Pos 09/23/23 17:55 A-a O2 Gradient 3.9 mmHg (5-10) L 09/23/23 17:55 Hematocrit 43.7 % (42-52) 09/23/23 17:55 Hgb O2 Saturation 93.3 % (95-100) L 09/23/23 17:55 Carboxyhemoglobin 0.5 %THgb (0.4-20.1) 09/23/23 17:55 Methemoglobin 0.6 % (0.4-1.5) 09/23/23 17:55 Total Hemoglobin 14.3 g/dL (14-18) 09/23/23 17:55 Sodium 142.0 mmol/L (131-143) 09/23/23 17:55 Potassium 3.6 mmol/L (3.5-5.0) 09/23/23 17:55 Glucose 139.0 mg/dL (70-115) H 09/23/23 17:55 Ionized Calcium 1.3 mmol/L (1.1-1.4) 09/23/23 17:55 O2 Delivery Device Room air 09/23/23 17:55 FiO2 21.0 % 09/23/23 17:55 Notched Blade Loader ID Monro 09/23/23 17:55 Sodium 138 mmol/L (136-145) 09/23/23 17:25 Potassium 3.7 mmol/L (3.5-5.1) 09/23/23 17:25 Chloride 102 mmol/L (98-107) 09/23/23 17:25 Carbon Dioxide 26 mmol/L (22-29) 09/23/23 17:25 Anion Gap 13.7 (5-19) 09/23/23 17:25 BUN 13 mg/dL (6-20) 09/23/23 17:25 Creatinine 0.7 mg/dL (0.7-1.2) 09/23/23 17:25 GFR Calculation 134.3 mL/min (90-130) H 09/23/23 17:25 Glucose 174 mg/dL (65-115) H 09/23/23 17:25 Calculated Osmolality 290 mOsm/kg (285-295) 09/23/23 17:25 Calcium 9.4 mg/dL (8.5-10.5) 09/23/23 17:25 Total Bilirubin 0.2 mg/dL (0.15-1.2) 09/23/23 17:25 AST 31 U/L (0-40) 09/23/23 17:25 ALT 41 U/L (0-41) 09/23/23 17:25 Alkaline Phosphatase 67 U/L (40-130) 09/23/23 17:25 NT-Pro-B Natriuret Pep 43 pg/mL (0-125) 09/23/23 17:25 Total Protein 7.6 g/dL (6.6-8.7) 09/23/23 17:25 Albumin 4.2 g/dL (3.5-5.2) 09/23/23 17:25 Globulin 3.4 g/dL (1.3-4.6) 09/23/23 17:25 Adenovirus (PCR) Not detected (NOT DETECT) 09/23/23 17:19 C. pneumoniae DNA (PCR) Not detected (NOT DETECT) 09/23/23 17:19 Coronavirus 229E (PCR) Not detected (NOT DETECT) 09/23/23 17:19 Human Metapneumovir PCR Not detected (NOT DETECT) 09/23/23 17:19 Influenza A (H1) PCR Not detected (NOT DETECT) 09/23/23 17:19 Influ A (H1/09) PCR Not detected (NOT DETECT) 09/23/23 17:19 Influenza A (H3) PCR Not detected (NOT DETECT) 09/23/23 17:19 Influenza Type A (PCR) Not detected (NOT DETECT) 09/23/23 17:19 Influenza Type B (PCR) Not detected (NOT DETECT) 09/23/23 17:19 M. pneumoniae (PCR) Not detected (NOT DETECT) 09/23/23 17:19 Parainfluenza 1 (PCR) Not detected (NOT DETECT) 09/23/23 17:19 Parainfluenza 2 (PCR) Not detected (NOT DETECT) 09/23/23 17:19 Parainfluenza 3 (PCR) Not detected (NOT DETECT) 09/23/23 17:19 Parainfluenza 4 (PCR) Not detected (NOT DETECT) 09/23/23 17:19 RSV Type A (PCR) Not detected (NOT DETECT) 09/23/23 17:19 RSV Type B (PCR) Detected (NOT DETECT) A 09/23/23 17:19 Entero/Rhino (PCR) Not detected (NOT DETECT) 09/23/23 17:19 SARS-CoV-2 (PCR) Not detected (NOT DETECT) 09/23/23 17:19 Discharge Plan Discharge Patient Disposition: Home Clinical Impression: RSV (respiratory syncytial virus infection) Chest wall muscle strain Qualifiers: Encounter type: initial encounter Qualified Code(s): S29.011A - Strain of muscle and tendon of front wall of thorax, initial encounter Condition: Stable Prescriptions: New promethazine-DM 6.25-15 mg/5 mL syrup 5 ml PO Q6H PRN (Reason: cough) Qty: 100 0RF prednisone 10 mg tablet 10 mg PO DAILY 10 Days Qty: 27 0RF Rx Instructions: 6 tabs on days 1-2, 5 tabs on days 3, 4 tabs on day 4, 3 tabs on day 5, 2 tabs on day 6, 1 tab on day 7 Percocet 7.5-325 mg tablet 1 tab PO Q6H PRN (Reason: pain) Qty: 10 0RF No Action ibuprofen 200 mg capsule 800 mg PO Q6H PRN sertraline 50 mg tablet 50 mg PO DAILY Qty: 30 5RF buspirone 10 mg tablet 10 mg PO BID Qty: 60 2RF Discharge Orders: Discharge ED (Routine); Ordered 09/23/23 Ordered By: Josefa Tee Patient Instructions: Chest Pain - Chest Wall, Upper Respiratory Infection (DC) Activity Restrictions/Additional Instructions: As we discussed you tested positive for RSV on your respiratory panel today. I am placing you on steroids, giving you something for your cough as well as your chest wall pain. As we discussed your blood work here was fairly unremarkable. There chest x-ray was normal. Monitor symptoms closely. You need to return to the emergency department for worsening cough or shortness of breath, severe difficulty breathing, worsening chest pain, fevers, or any other concerns you may have. I hope you begin to feel better soon. Coding Level of Care Code ED Desktop Publishing Associate for Sher Eubanks
[2023-09-23] MEDS: methylPREDNISolone sod succ 125 mg/2 mL INJ IVP (17:26)
--- NOTE | 2023-09-23 17:30 | ECG_ITS ---
[facility] Test Date: 2023-09-23 Pat Name: Oneal Gonzalez Department: Room: Gender: Male Surgical Technologist: : 1995 Requested By: Josefa Tee Order Number: [id number] Donya MD: Rafael Mares M.D. Measurements Intervals [place] Rate: 127 P: 35 CT: 154 QRS: 37 QRSD: 102 T: 10 QT: 278 QTc: 405 Interpretive Statements SINUS TACHYCARDIA ABNORMAL RHYTHM ECG Compared to ECG 08/17/2021 10:27:[address] interval no longer present Poor R-wave progression no longer present Electronically Signed On 09-24-2023 8:22:17 [employer]KER TECHNICIAN by Rafael Mares M.D. [email or web address]
[2023-09-23 17:37] LABS: Basophils % 0.3 %; Eosinophils # 0.1 10^3/uL (0.0-0.8); Eosinophils % 0.4 %; Lymphocytes # 1.6 10^3/uL (0.8-4.8); Lymphocytes % 10.3 %; Mean Corpuscular HGB Conc 31.9 g/dL (30-55); Mean Corpuscular Hemoglobin 28.8 pg (27-33); Mean Corpuscular Volume 90.3 fl (82-101); Mean Platelet Volume 10.6 fL (7.4-10.4); Monocytes # 1.5 10^3/uL (0.2-0.9); Monocytes % 9.3 %; Neutrophils # 12.37 10^3/uL (1.8-7.7); Neutrophils % 79.3 %; Nucleated Red Blood Cells % 0 %; Platelet Count 253 10^3/cmm (157-399); Red Blood Count 4.65 10^6/uL (3.85-5.65); White Blood Count 15.62 10^3/uL (3.29-11.43)
[2023-09-23] MEDS: ipratropium-albuterol 3 mL Neb INHALATION (17:37)
[2023-09-23 17:48] LABS: D Dimer 0.28 ug/mLFEU (0-0.59)
[2023-09-23 18:01] LABS: Alanine Aminotransferase 41 U/L (0-41); Albumin Level 4.2 g/dL (3.5-5.2); Alkaline Phosphatase 67 U/L (40-130); Anion Gap 13.7 (5-19); Aspartate Amino Transferase 31 U/L (0-40); Blood Urea Nitrogen 13 mg/dL (6-20); Calcium 9.4 mg/dL (8.5-10.5); Carbon Dioxide 26 mmol/L (22-29); Chloride 102 mmol/L (98-107); Globulin 3.4 g/dL (1.3-4.6); Glomerular Filtration Rate 134.3 mL/min (90-130); Glucose 174 mg/dL (65-115); NT Pro B Type Natriuretic Pept 43 pg/mL (0-125); Osmolality Calculated 290 mOsm/kg (285-295); Potassium 3.7 mmol/L (3.5-5.1); Sodium 138 mmol/L (136-145); Total Bilirubin 0.2 mg/dL (0.15-1.2); Total Protein 7.6 g/dL (6.6-8.7)
[2023-09-23] MEDS: ketorolac 30 mg/mL INJ IVP (18:03)
[2023-09-23 18:08] LABS: ABG PCO2 40.9 mmHg (35-45); ABG PH Result 7.42 (7.35-7.45); Alveolar-Arterial Oxygen Gradi 3.9 mmHg (5-10); Arterial Blood Gas Hematocrit 43.7 % (42-52); Blood Gas Allen Test Pos; Blood Gas Operator Identificat MONRO; Blood Gas Sample Site Radial, left; Blood Gas Sample Type Arterial; Carboxyhemoglobin 0.5 %THgb (0.4-20.1); HCO3 ABG 26.6 mmol/L (22-26); HGB O2 Sat 93.3 % (95-100); Ionized Calcium Level - ABG 1.3 mmol/L (1.1-1.4); Methemoglobin 0.6 % (0.4-1.5); Oxygen Device ROOM AIR; Oxygen Saturation ABG 94.4; PO2 ABG 69.2 mmHg (80.0-100.0); PO2 FiO2 Ratio Arterial Blood 0; Potassium Level - ABG 3.6 mmol/L (3.5-5.0); Total Hemoglobin 14.3 g/dL (14-18)
[2023-09-23] MEDS: LORazepam 2 mg/mL INJ 10 mL MDV 1 MG IV (18:20)
[2023-09-23] MEDS: morphine 4 mg/mL SDV 1 mL IVP (18:35)
[2023-09-23 19:05] LABS: Adenovirus Not Detected (NOT DETECT); Chlamydia Pneumoniae Not Detected (NOT DETECT); Coronavirus 229E,HKU1,NL63,OC4 Not Detected (NOT DETECT); Human Metapneumovirus Not Detected (NOT DETECT); Human Rhinovirus/Enterovirus Not Detected (NOT DETECT); Influenza A Not Detected (NOT DETECT); Influenza A H1 Not Detected (NOT DETECT); Influenza A H1-2009 Not Detected (NOT DETECT); Influenza A H3 Not Detected (NOT DETECT); Influenza B Not Detected (NOT DETECT); Mycoplasma Pneumoniae Not Detected (NOT DETECT); Parainfluenza Virus Type 1 Not Detected (NOT DETECT); Parainfluenza Virus Type 2 Not Detected (NOT DETECT); Parainfluenza Virus Type 3 Not Detected (NOT DETECT); Parainfluenza Virus Type 4 Not Detected (NOT DETECT); Respiratory Syncytial Virus A Not Detected (NOT DETECT); SARS-COV-2 Not Detected (NOT DETECT)
[2023-09-23 19:07] LABS: Respiratory Syncytial Virus B Detected (NOT DETECT)
--- NOTE | 2023-09-23 19:25 | PC.NURSE ---
discharge delayed due to an unverified medication by pharmacy.
[2023-09-23] MEDS: oxyCODONE-APAP 5-325 mg Tablet 2 TAB PO (21:12)
== END 2023-09-23 19:58 | disposition home or self-care (01) ==
PROVIDERS: Emergency Provider Physician Assistant
DX: S29.011A Strain of muscle and tendon of front wall of thorax, initial encounter (principal); J22 Unspecified acute lower respiratory infection; Z11.52 Encounter for screening for COVID-19; X50.9XXA Other and unspecified overexertion or strenuous movements or postures, initial encounter
CPT/HCPCS: 36600; 71045; 80051; 80053; 82330; 82805; 83880; 85025; 85378; 87486; 87581; 87633; 93005; 94640; 96374; 96375; 99285; J1885; J2060; J2270; J2930

== ENCOUNTER → 2023-09-27 11:06 | Outpatient (BNVA) | payer MEDICAID, SELFPAY | PROVIDERS: PCP Nurse Practitioner Family; Visit Provider Nurse Practitioner Family | DX: R73.03 Prediabetes (principal); F41.9 Anxiety disorder, unspecified; F32.A Depression, unspecified; Z79.899 Other long term (current) drug therapy | CPT/HCPCS: 80053; 80061; 83036 ==

== ENCOUNTER 2024-06-13 13:43 | Outpatient (CLI) | payer MEDICAID, SELFPAY | END 2024-06-13 13:44 | disposition home or self-care (01) | LOC: SLEEP 13:45 | PROVIDERS: PCP Nurse Practitioner Family; Visit Provider Family Medicine | DX: G47.33 Obstructive sleep apnea (adult) (pediatric) (principal) | CPT/HCPCS: G0399 ==

== ENCOUNTER 2024-09-25 13:36 | Outpatient (CLI) | payer MEDICAID, SELFPAY ==
[2024-09-25 14:14] LABS: ABG PH Result 7.39 (7.35-7.45); Arterial Blood Gas Hematocrit 44.2 % (42-52); Base Excess ABG 1.7 mmol/L (-2.0-2.0); Blood Gas Allen Test Pos; Blood Gas Operator Identificat CG; Blood Gas Sample Site Radial, left; Blood Gas Sample Type Arterial; Carboxyhemoglobin 0.9 %THgb (0.4-20.1); HCO3 ABG 27.3 mmol/L (22-26); HGB O2 Sat 93.1 % (95-100); Ionized Calcium Level - ABG 1.2 mmol/L (1.1-1.4); Methemoglobin 1.1 % (0.4-1.5); Oxygen Device ROOM AIR; PO2 ABG 69.3 mmHg (80.0-100.0); Potassium Level - ABG 3.8 mmol/L (3.5-5.0); Total Hemoglobin 14.4 g/dL (14-18)
== END 2024-09-25 13:37 | disposition home or self-care (01) ==
LOC: LAB 13:40
PROVIDERS: PCP Family Medicine; Visit Provider Family Medicine
DX: Z01.818 Encounter for other preprocedural examination (principal)
CPT/HCPCS: 36600; 80051; 82330; 82805